=== PATIENT | male | born 1995 | race African-American/Black ===

== ENCOUNTER 2017-09-06 10:49 | Emergency (ER) | payer MEDICAID, OTHER ==
[2017-09-06 10:50] VITALS: BP 130/78; PULSE 69; RESP 16; TEMP 99.4; O2SAT 100
[2017-09-06] MEDS ORDERED: BACT800T5 PO (11:33)
--- NOTE | 2017-09-06 11:36 | PD ---
HPI . Cellulitis Chief Complaint: Skin Problem Time Seen by Provider: 11:24 Travel History International Travel<30 days: No Contact w/Intl Traveler<30days: No Traveled to known affect area: No History of Present Illness HPI 22-year-old male patient presents emergency department for evaluation of cellulitis to his left inner upper thigh. Patient reports he had an ingrown hair that became infected and now is very painful and draining purulent fluid. Patient denies any fever or chills, chest pain, shortness breath, nausea, vomiting, diarrhea, hematuria, no genital or scrotal lesions. Patient denies any major medical history. Patient does not take any daily medication and has no known allergies. PFSH Social History Tobacco Use: No Allergies-Medications (Allergen,Severity, Reaction): Coded Allergies: No Known Allergies (Unverified , 09/06/17) Review of Systems Except as stated in HPI: all other systems reviewed are Neg Physical Exam Narrative GENERAL: Well-nourished, well-developed 22-year-old male patient in no acute distress. Nontoxic appearing. SKIN: 2 cm area of induration with central opening draining purulent material on the left inner upper thigh. HEAD: Normocephalic. Atraumatic. EYES: No scleral icterus. No injection or drainage. NECK: Supple, trachea midline. No JVD or lymphadenopathy. CARDIOVASCULAR: Regular rate and rhythm without murmurs, gallops, or rubs. RESPIRATORY: Breath sounds equal bilaterally. No accessory muscle use. GASTROINTESTINAL: Abdomen soft, non-tender, nondistended. MUSCULOSKELETAL: No cyanosis, or edema. Data Data Last Documented VS Vital Signs Date Time Temp Pulse Resp B/P (MAP) Pulse Ox O2 Delivery O2 Flow Rate FiO2 09/06/17 10:50 99.4 69 16 130/78 (95) 100 MDM Medical Decision Making Medical Screen Exam Complete: Yes Emergency Medical Condition: Yes Differential Diagnosis Differential diagnoses include but not limited to cellulitis, abscess, folliculitis Narrative Course 22 year male patient presents emergency department for evaluation of cellulitis to his left inner upper thigh. There is no genital or scrotal lesions. Patient had an ingrown hair that became infected and started causing pain approximately 5 days ago now there is a 2 cm area of induration with central opening draining purulent material. Patient will be discharged home with wound care instructions and a prescription for Bactrim and instructed to return the emergency Department in 2 days for wound recheck. Diagnosis Primary Impression: Cellulitis Qualified Codes: L03.116 - Cellulitis of left lower limb Referrals: Primary Care Physician Patient Instructions: Cellulitis (ED), General Instructions Additional Instructions: Please return to emergency department in 2 days for wound recheck or sooner with worsening condition. Follow up with your primary care provider. Take medications as prescribed. [facility]. Daily dressing changes. Keep the area clean and dry. Warm moist compress 3-4 times a day for 15-20 minutes will help facilitate drainage. May take ibuprofen or Tylenol as needed for pain. Med/Other Pt SpecificInfo: Prescription(s) given Scripts Sulfamethoxazole-Trimethoprim (Bactrim DS) 800-160 Mg Tab 1 TAB PO BID for Infection for 10 Days, #20 TAB 0 Refills Prov: Janine Engle 09/06/17 Disposition: 01 DISCHARGE HOME Condition: Stable Janine Engle Sep 06, 2017 11:36
== END 2017-09-06 12:09 | disposition home or self-care (01) ==
LOC: NEPK 10:49
DX: L03.116 Cellulitis of left lower limb (principal); A49.02 Methicillin resistant Staphylococcus aureus infection, unspecified site
CPT/HCPCS: 86403; 87070; 87186; 87205; 99283

== ENCOUNTER 2018-03-02 10:27 | Emergency (ER) | payer MEDICAID ==
[~2018-03-02 10:27] MED LIST: BACT800T5 PO
[2018-03-02 10:47] VITALS: BP 123/66; PULSE 52; RESP 17; TEMP 98.6; O2SAT 99
--- NOTE | 2018-03-02 11:16 | PD ---
HPI Chief Complaint: Medical Clearance Time Seen by Provider: 10:51 Travel History International Travel<30 days: No Contact w/Intl Traveler<30days: No Traveled to known affect area: No History of Present Illness HPI 23-year-old male presents to the ED requesting STD screening. The patient denies any somatic complaint complaints including fever, chills, nausea, vomiting, penile discharge, dysuria, hematuria, rash, penile pain, scrotal pain. Patient endorses unprotected sex with a single male partner. He states that this partner states that he is having burning with urination, but has not been evaluated or had a formal diagnosis. The patient went to the health clinic at [facility] and was referred to the health department. He states that he was told that he would have to pay $300 for testing there. He states that he cannot afford that evaluation, so came here. [facility] Social History Tobacco Use: No Allergies-Medications (Allergen,Severity, Reaction): Coded Allergies: No Known Allergies (Unverified , 03/02/18) Reported Meds & Prescriptions Reported Meds & Active Scripts Active Bactrim DS (Sulfamethoxazole-Trimethoprim) 800-160 Mg Tab 1 Tab PO BID 10 Days Review of Systems Except as stated in HPI: all other systems reviewed are Neg Physical Exam Narrative GENERAL: Well-nourished, well-developed -[place] male no acute distress. SKIN: Warm and dry. HEAD: Normocephalic. Atraumatic. EYES: No scleral icterus. No injection or drainage. PERRLA. EOMI. ENT: Pearly kumar tympanic membranes bilaterally. Nasal mucosa is moist. Oropharynx without erythema, edema or exudate. NECK: Supple, trachea midline. No JVD or lymphadenopathy. CARDIOVASCULAR: Regular rate and rhythm without murmurs, gallops, or rubs. RESPIRATORY: Breath sounds clear and equal bilaterally. No accessory muscle use. GASTROINTESTINAL: Abdomen soft, non-tender, nondistended. + Bowel sounds MUSCULOSKELETAL: No cyanosis, or edema. Moves extremities spontaneously. Noted to walk with a normal gait. BACK: Nontender without obvious deformity. No CVA tenderness. Data Data Last Documented VS Vital Signs Date Time Temp Pulse Resp B/P (MAP) Pulse Ox O2 Delivery O2 Flow Rate FiO2 03/02/18 10:47 98.6 52 17 123/66 (85) 99 MDM Medical Decision Making Medical Screen Exam Complete: Yes Emergency Medical Condition: Yes Differential Diagnosis Exposure to STD versus gonorrhea versus chlamydia versus epididymitis versus other Narrative Course 23-year-old male presents to the ED requesting STD screening. The patient denies any somatic complaint complaints including fever, chills, nausea, vomiting, penile discharge, dysuria, hematuria, rash, penile pain, scrotal pain. Patient endorses unprotected sex with a single male partner. He states that this partner states that he is having burning with urination, but has not been evaluated or had a formal diagnosis. The patient went to the health clinic at [facility] and was referred to the health department. He states that he was told that he would have to pay $300 for testing there. He states that he cannot afford that evaluation, so came here. A medical screening exam was performed: At the time of evaluation the presenting medical condition was determined not to be of an emergent nature. The patient was given the option of receiving additional care, but declined. Patient was given options for additional community resources from which to obtain care. The Patient Has Been advised to seek medical attention for their presenting complaint. The patient has been advised to return to the ER at any time if an emergent condition develops. Diagnosis Primary Impression: Encounter for medical screening examination Referrals: [facility] Dept. Additional Instructions: Use condoms for safer sex practice. Return to the ED for any urgent or emergent medical condition. Disposition: 01 DISCHARGE HOME Condition: Rebeca Miranda March 02, 2018 11:16
== END 2018-03-02 11:20 | disposition left against medical advice (07) ==
LOC: NEPK 10:27
DX: R30.0 Dysuria (principal)
CPT/HCPCS: 99281

== ENCOUNTER 2018-03-13 10:33 | Emergency (ER) | payer MEDICAID ==
[~2018-03-13] VITALS: Ht 165.1 cm; Wt 75.0 kg
[2018-03-13 10:43] VITALS: BP 118/72; PULSE 51; RESP 18; TEMP 98.4; O2SAT 100
--- NOTE | 2018-03-13 11:43 | RADRPT ---
EXAM DATE: 03/13/2018 11:41 AM EDT AGE/SEX: 23 years / Male INDICATIONS: Pain. No known injury. CLINICAL DATA: This is the patient's initial encounter. Patient reports that signs and symptoms have been present for 2 days and indicates a pain score of 8/10. MEDICAL/SURGICAL HISTORY: None. None. COMPARISON: No prior exams available for comparison. FINDINGS: Bony structures are intact and in normal alignment. Joints are intact without dislocation or signifi cant arthropathy. Osseous density is normal. Soft tissues are unremarkable. No radiopaque foreign bodies seen. CONCLUSION: Negative examination Electronically signed by: Tyler Reddy MD 03/13/2018 11:41 AM EDT
--- NOTE | 2018-03-13 12:08 | PD ---
HPI Chief Complaint: Musculoskeletal Complaint Time Seen by Provider: 12:02 Travel History International Travel<30 days: No Contact w/Intl Traveler<30days: No Traveled to known affect area: No History of Present Illness HPI 23-year-old male with no significant medical history presents emergency department for evaluation of a bump on the dorsal aspect of his left wrist. He states she has been there for a couple of months. He denies any injury. States at times it is painful and aches, otherwise he does not even notice it. Patient had an x-ray ordered in triage prior to coming back to an emergency room bed. Patient also is requesting AIDS and STD testing due to unprotected intercourse with multiple partners. He denies any symptoms at this time. [facility] Past Medical History Medical History: Denies Significant Hx Social History Tobacco Use: No Allergies-Medications (Allergen,Severity, Reaction): Coded Allergies: No Known Allergies (Unverified , 03/21/18) Reported Meds & Prescriptions Reported Meds & Active Scripts Active No Active Prescriptions or Reported Medications Review of Systems Except as stated in HPI: all other systems reviewed are Neg Physical Exam Narrative GENERAL: Well-nourished, well-developed male patient in no acute distress SKIN: Focused skin assessment warm/dry. HEAD: Normocephalic. EYES: No scleral icterus. No injection or drainage. NECK: Supple, trachea midline. No JVD or lymphadenopathy. CARDIOVASCULAR: Regular rate and rhythm without murmurs, gallops, or rubs. RESPIRATORY: Breath sounds equal bilaterally. No accessory muscle use. GASTROINTESTINAL: Abdomen soft, non-tender, nondistended. No guarding. No rebound tenderness GENITOURINARY: Patient refuses examination MUSCULOSKELETAL: No cyanosis, or edema. 1 cm in diameter palpable mobile nodule on the dorsal aspect of the left wrist. No erythema or edema. No induration or fluctuation. BACK: Nontender without obvious deformity. No CVA tenderness. Data Data Last Documented VS Orders Orders Wrist, Complete ([id number]) (03/13/18 11:30) Ed Discharge Order (03/13/18 12:13) [facility] Medical Decision Making Medical Screen Exam Complete: Yes Emergency Medical Condition: Yes Medical Record Reviewed: Yes Differential Diagnosis Ganglion cyst versus lipoma versus abscess Narrative Course 23-year-old male presents emergency department for evaluation of a bump on his left wrist and requesting STD testing. X-ray imaging confirms no acute bony abnormality. Physical exam is consistent with a ganglion cyst. I explained to the patient that being asymptomatic we do not randomly screened for STDs here in the emergency department. I gave him resources to follow up outpatient with. He is dissatisfied with this option, however with no acute complaint, there is no need for emergent medical intervention at this time. Diagnosis Primary Impression: Ganglion cyst Referrals: [facility] [address] Hand Surgeon Primary Care Physician Patient Instructions: Ganglion Cysts (ED), General Instructions, Safe Sex (ED) Additional Instructions: Follow up with a primary care provider Return to ED with acute worsening of symptoms Med/Other Pt SpecificInfo: No Change to Meds Scripts No Active Prescriptions or Reported Meds Disposition: 01 DISCHARGE HOME Condition: Stable Anjali Bills Mar 13, 2018 12:08
== END 2018-03-13 12:28 | disposition home or self-care (01) ==
LOC: NEPD 10:33
DX: M67.432 Ganglion, left wrist (principal)
CPT/HCPCS: 73110; 99283

== ENCOUNTER 2018-03-18 02:07 | Emergency (ER) | payer MEDICAID ==
[~2018-03-18] VITALS: Ht 167.6 cm; Wt 75.0 kg
[2018-03-18 02:10] VITALS: BP 135/71; PULSE 50; RESP 20; TEMP 97.8; O2SAT 99
--- NOTE | 2018-03-18 04:25 | PD ---
HPI Chief Complaint: GI Complaint Time Seen by Provider: 03:44 Travel History International Travel<30 days: No Contact w/Intl Traveler<30days: No Traveled to known affect area: No History of Present Illness HPI 23-year-old male presents emergency department with chief complaint of loose stool. States that he has had "dripping from his butt" but it is not painful and controllable. He reports mucousy, whitish, and red colors that have come out over the last several days. He has no pain associated with it. No nausea no vomiting and no prior episodes PFSH Past Medical History Medical History: Denies Significant Hx Diminished Hearing: No Immunizations Current: Yes Tetanus Vaccination: Unknown Influenza Vaccination: No Past Surgical History Surgical History: No Previous Surgery Social History Alcohol Use: No Tobacco Use: No Substance Use: No Allergies-Medications (Allergen,Severity, Reaction): Coded Allergies: No Known Allergies (Unverified , 03/18/18) Reported Meds & Prescriptions Reported Meds & Active Scripts Active No Active Prescriptions or Reported Medications Review of Systems Except as stated in HPI: all other systems reviewed are Neg Gastrointestinal: Positive: Diarrhea Physical Exam Narrative GENERAL: 23-year-old male in no distress SKIN: Focused skin assessment warm/dry. HEAD: Atraumatic. Normocephalic. EYES: Pupils equal and round. No scleral icterus. No injection or drainage. ENT: No nasal bleeding or discharge. Mucous membranes pink and moist. NECK: Trachea midline. No JVD. CARDIOVASCULAR: Regular rate and rhythm. No murmur appreciated. RESPIRATORY: No accessory muscle use. Clear to auscultation. Breath sounds equal bilaterally. GASTROINTESTINAL: Abdomen soft, non-tender, nondistended. Hepatic and splenic margins not palpable. Data Data Last Documented VS Vital Signs Date Time Temp Pulse Resp B/P (MAP) Pulse Ox O2 Delivery O2 Flow Rate FiO2 03/18/18 02:10 97.8 50 20 135/71 (92) 99 Orders Orders Stool Ova And Parasite Screen (03/18/18 03:51) Stool Wbc (Leukocytes) (03/18/18 03:51) Stool Afb Culture And Stain (03/18/18 03:51) Occult Blood (Hemoccult) Stool (03/18/18 03:51) MDM Medical Decision Making Medical Screen Exam Complete: Yes Emergency Medical Condition: Yes Differential Diagnosis infectious diarrhea Narrative Course patient seen and evaluated. no symptoms other than liquid stool but not having uncontrolled diarrhea. Cultures sent, patient will be notified of any significant findings Diagnosis Primary Impression: Diarrhea Qualified Codes: R19.7 - Diarrhea, unspecified Patient Instructions: Acute Diarrhea (GEN), General Instructions Scripts No Active Prescriptions or Reported Meds Disposition: 01 DISCHARGE HOME Condition: Good Chino Hoffman DO Mar 18, 2018 04:25
== END 2018-03-18 06:19 | disposition home or self-care (01) ==
LOC: NEPC 02:07
DX: R19.7 Diarrhea, unspecified (principal)
CPT/HCPCS: 82272; 87015; 87205; 87328; 87329; 99283

== ENCOUNTER 2018-03-21 10:03 | Emergency (ER) | payer MEDICAID ==
[~2018-03-21] VITALS: Ht 172.7 cm; Wt 70.0 kg
[2018-03-21 10:09] VITALS: BP 140/63; PULSE 58; RESP 16; TEMP 97.9; O2SAT 100
--- NOTE | 2018-03-21 12:13 | PD ---
HPI Chief Complaint: Complaint Time Seen by Provider: 11:57 Travel History International Travel<30 days: No Contact w/Intl Traveler<30days: No Traveled to known affect area: No History of Present Illness HPI 23-year-old male presents to the emergency department with complaint of clear penile discharge after he urinates for 1 week and difficulty with having bowel movements because his rectum is swollen x 1 week. He does report having anal intercourse. He says he was here 2 days ago complaining of his rectum being swollen and drainage from his rectum and they took a stool sample. He reports having a small, normal brown bowel movement last night. Denies testicular pain or swelling. His abdominal pain, fever, vomiting. Denies dysuria. Has not taken any medications or try any treatments to alleviate his symptoms. Symptoms are mild in severity. No known aggravating or relieving factors. Primary CARE providers in [place]. No known allergies. Denies significant past medical history. Has no other medical complaints. No other modifying factors or associated signs and symptoms. PFSH Past Medical History Diminished Hearing: No Immunizations Current: Yes Social History Alcohol Use: No Tobacco Use: No Substance Use: No Allergies-Medications (Allergen,Severity, Reaction): Coded Allergies: No Known Allergies (Unverified , 03/21/18) Reported Meds & Prescriptions Reported Meds & Active Scripts Active No Active Prescriptions or Reported Medications Review of Systems Except as stated in HPI: all other systems reviewed are Neg Physical Exam Narrative GENERAL: Well-nourished, well-developed [-] patient, in no acute distress; afebrile, nontoxic-appearing SKIN: Warm and dry. HEAD: Atraumatic. Normocephalic. EYES: Pupils equal and round. No scleral icterus. No injection or drainage. ENT: Mucosa pink and moist. Airway patent. NECK: Trachea midline. CARDIOVASCULAR: Regular rate and rhythm RESPIRATORY: No accessory muscle use. GASTROINTESTINAL: Abdomen soft, non-tender, nondistended. Hepatic and splenic margins not palpable. Bowel sounds are active 4 quadrants. Negative Godinez sign. No guarding. Nonrigid. No rebound tenderness. RECTAL EXAM: Exam done in the presence of a nurse. No masses or tenderness. No stool on exam. No visualized external hemorrhoids. GENITOURINARY: Exam done in the presence of a nurse. Circumcised. Testes descended bilaterally without evidence of rotation. No lesions or erythema. No urethral discharge. MUSCULOSKELETAL: No obvious deformities. No clubbing. No cyanosis. No edema. NEUROLOGICAL: Awake and alert. Oriented 3. No obvious cranial nerve deficits. Motor grossly within normal limits. Normal speech. PSYCHIATRIC: Appropriate mood and affect; insight and judgment normal. Data Data Last Documented VS Vital Signs Date Time Temp Pulse Resp B/P (MAP) Pulse Ox O2 Delivery O2 Flow Rate FiO2 03/21/18 10:09 97.9 58 16 140/63 (88) 100 Orders Orders Gc And Chlamydia Pcr (03/21/18 12:20) Azithromycin Powd Pack (Zithromax Powd P (03/21/18 12:30) Ceftriaxone Inj (Rocephin Inj) (03/21/18 12:30) Metronidazole (Flagyl) (03/21/18 12:30) Ed Discharge Order (03/21/18 12:31) Lidocaine 1% Inj (Xylocaine 1% Inj) (03/21/18 13:00) Labs Laboratory Tests Test 03/21/18 12:30 [facility] Medical Decision Making Medical Screen Exam Complete: Yes Emergency Medical Condition: Yes Medical Record Reviewed: Yes Differential Diagnosis Prostatitis, urethritis, chlamydia, trichomonas, gonorrhea, constipation, diarrhea Narrative Course 23-year-old male with symptoms of proctitis and urethritis. No penile discharge noted on physical exam. JOSE LUIS unremarkable. Patient was seen here 2 days ago with diarrhea; reviewed his stool culture and it was negative with some moderate amount of white blood cells noted. I did discuss the patient with Dr. Ramirez and she recommended empirical treatment for STDs. Patient empirically treated with azithromycin, Rocephin, Flagyl in the ER. Instructed patient to follow-up with [facility] department or primary care provider for full STD screening. Instructed patient to follow up with primary care provider. Patient verbalizes understanding and agreement with treatment plan. Patient is medically cleared and stable for discharge. Discussed reasons to return to the emergency department. Patient agrees with treatment plan. The patients vital signs are stable and the patient is stable for outpatient follow-up and treatment. Patient discharged home, stable and in no acute distress. Diagnosis Primary Impression: Proctitis Additional Impression: Urethritis Referrals: [facility] Primary Care Physician [facility] Dept. Patient Instructions: General Instructions, Nonspecific Urethritis in Men (ED) , Proctitis (ED) Additional Instructions: Avoid sexual activity for 14 days No sexual activity with your partner/s until they have been treated and waited 14 days Inform all sexual partners within the past 3-6 months that they need to be evaluated and treated Use condoms every time you have sex Follow-up with primary care provider Return to the emergency department immediately with worsening of symptoms Med/Other Pt SpecificInfo: No Change to Meds, No Meds Exist/No RX given Scripts No Active Prescriptions or Reported Meds Disposition: 01 DISCHARGE HOME Condition: Stable Amy Alegria Mar 21, 2018 12:13
[2018-03-21] MEDS ORDERED: metroNIDAZOLE 500 MG TAB PO ONE (12:30)
[2018-03-21] MEDS ORDERED: AZITHROMYCIN PWD FOR SUSP 1 GM PACKET PO ONE (12:30)
[2018-03-21] MEDS ORDERED: cefTRIAXone 250 MG VIAL IM ONE (12:30)
[2018-03-21] MEDS ORDERED: LIDOCAINE HCL 1% 50 ML VIAL IM ONE (12:30)
[2018-03-21] MEDS ORDERED: LIDOCAINE HCL 1% 10 ML VIAL OTHER ONE (13:00)
[2018-03-21] MEDS ORDERED: LIDOCAINE HCL 1% 30 ML VIAL IM ONE (13:00)
[2018-03-21 14:15] VITALS: BP 108/63
== END 2018-03-21 14:21 | disposition home or self-care (01) ==
LOC: NEPD 10:03
DX: K62.89 Other specified diseases of anus and rectum (principal); N34.2 Other urethritis
CPT/HCPCS: 87491; 87591; 96372; 99284; J0696